=== PATIENT | female | born 1975 | race African-American/Black ===

== ENCOUNTER 2018-02-03 04:36 | Emergency (ER) | payer OTHER ==
[~2018-02-03] VITALS: Ht 162.6 cm; Wt 99.1 kg
[~2018-02-03 04:36] MED LIST: INSU100C6 SQ; [UNRECOGNIZED DRUG - OTHER] SQ
[2018-02-03 05:13] LABS: GLUCOSE,POINT OF CARE 554 MG/DL (70-110)
[2018-02-03 06:01] VITALS: BP 119/75
[2018-02-03] MEDS ORDERED: ACETAMINOPHEN 500 MG TABLET PO ONE (06:45)
[2018-02-03 06:53] LABS: GLUCOSE,POINT OF CARE 516 MG/DL (70-110)
[2018-02-03] MEDS ORDERED: INSULIN REGULAR, HUMAN 100 UNITS/ML SQ ONE (07:00)
== END 2018-02-03 07:31 | disposition left against medical advice (07) ==
LOC: EMS 04:36
DX: L03.012 Cellulitis of left finger (principal); E11.65 Type 2 diabetes mellitus with hyperglycemia
CPT/HCPCS: 10060; 82962; 99283; J1815

== ENCOUNTER 2022-05-29 12:52 | Emergency (ER) | payer SELFPAY ==
[~2022-05-29] VITALS: Ht 162.6 cm; Wt 81.8 kg
[2022-05-29] MEDS ORDERED: AMOX1TAB16 PO (14:38)
[2022-05-29 15:05] VITALS: BP 140/80
== END 2022-05-29 15:08 | disposition home or self-care (01) ==
LOC: EMS 12:52
DX: K02.9 Dental caries, unspecified (principal); E11.9 Type 2 diabetes mellitus without complications; R68.84 Jaw pain
CPT/HCPCS: 99283; Z7502

== ENCOUNTER 2023-06-19 05:46 | Emergency (ER) | payer SELFPAY ==
[~2023-06-19] VITALS: Ht 162.6 cm; Wt 84.1 kg
[~2023-06-19 05:46] MED LIST changes: +AMOX1TAB16 PO; -INSU100C6 SQ; -[UNRECOGNIZED DRUG - OTHER] SQ
[2023-06-19] MEDS ORDERED: ACETAMINOPHEN 500 MG TABLET PO ONE (06:15)
[2023-06-19 06:31] LABS: APPEARANCE,URINE HAZY (CLEAR); BILIRUBIN,URINE NEGATIVE (NEGATIVE); COLOR,URINE LIGHT YELLOW (YELLOW); GLUCOSE, URINE (UA) >=1000 mg/dL (NEGATIVE); KETONES,URINE NEGATIVE (NEGATIVE); LEUKOCYTE ESTERASE ,URINE MODERATE (NEGATIVE); NITRATE,URINE NEGATIVE (NEGATIVE); OCCULT BLOOD,URINE NEGATIVE (NEGATIVE); PH,URINE 5.5 (5.0-8.0); PROTEIN,URINE NEGATIVE (NEGATIVE); SPECIFIC GRAVITIY, URINE 1.034 (1.003-1.030); UROBILINOGEN,URINE <=1.0 mg/dL (<=1.0)
[2023-06-19 06:35] LABS: HCG,QUAL URINE NEGATIVE (NEGATIVE)
[2023-06-19 07:11] VITALS: BP 112/67; PULSE 105; RESP 16; TEMP 98.6
[2023-06-19 07:22] LABS: BACTERIA,URINE Many /HPF (None Seen); RBC,URINE 0-2 /HPF (0-2); SQUAMOUS EPITHELIAL CELL,UR Moderate /LPF (None Seen); WBC,URINE 51-100 /HPF (0-5)
[2023-06-19] MEDS ORDERED: CEPH-558 PO (07:27)
[2023-06-19] MEDS ORDERED: CEPHALEXIN MONOHYDRATE 500 MG CAPSULE PO ONE (07:30)
== END 2023-06-19 07:36 | disposition home or self-care (01) ==
LOC: EMS 05:46
DX: N39.0 Urinary tract infection, site not specified (principal); E11.9 Type 2 diabetes mellitus without complications; Z98.890 Other specified postprocedural states
CPT/HCPCS: 81001; 84703; 87086; 87186; 99283

== ENCOUNTER 2024-04-15 06:01 | Emergency (ER) | payer SELFPAY ==
[~2024-04-15] VITALS: Ht 162.6 cm; Wt 88.0 kg
[~2024-04-15 06:01] MED LIST changes: -AMOX1TAB16 PO; +CEFU250T87 PO; +SULF-261 PO
[2024-04-15 06:12] VITALS: TEMP 98.8
[2024-04-15] MEDS ORDERED: CEFU250T87 PO (07:40)
[2024-04-15] MEDS ORDERED: METF-1211 PO (07:40)
[2024-04-15 08:08] VITALS: BP 140/74; PULSE 85; RESP 16
== END 2024-04-15 08:14 | disposition home or self-care (01) ==
LOC: EMS 06:02
DX: E11.65 Type 2 diabetes mellitus with hyperglycemia (principal); Z76.0 Encounter for issue of repeat prescription; Z98.890 Other specified postprocedural states
CPT/HCPCS: 82962; 99283